=== PATIENT | female | born 1930 | race Caucasian/White ===

== ENCOUNTER 2017-08-06 13:21 | Inpatient (IN) | payer BC ==
[~2017-08-06] VITALS: Ht 162.6 cm; Wt 46.5 kg
--- NOTE | 2017-08-06 13:32 | ERA ---
ER Documentation Chief Complaint Date/Time DATE: 08/06/17 TIME: 13:32 Chief Complaint Bradycardia and Hypotensive HPI The patient is a 86-year-old female, presenting to the ER from rehab because of hypotension and bradycardia. She was treated with approximately 400 mL of normal saline by EMS and atropine 0.4 mg IV at the rehab with some response. She is awake, alert, able to answer simple questions but somnolent. Her history is limited, she denies headache, neck pain, chest pain, dyspnea, abdominal pain, vomiting. Past medical history: History of lung cancer, dementia, hypertension, dyslipidemia next Past surgical history: Status post lobectomy ROS All systems reviewed and are negative except as per history of present illness. Medications Home Meds Reported Medications Ascorbic Acid (Vitamin C) 500 Mg Tab, 500 MG PO TID, TAB 08/06/17 Acetaminophen* (Tylenol*) 325 Mg Tablet, 650 MG PO Q6H Y for MILD PAIN LEVEL 1-3 , TAB AND FOR FEVER 08/06/17 Tuberculin,Purif.prot.deriv. (Tubersol) 5 Tub Unit/0.1 Ml Vial, 5 TUB ID QHS, VIAL INJ. 0.1ML QHS FOR TB SCREENING FOR 1 DAY 2ND STEP START DATE 08/12/17-END DATE 08/13/17 08/06/17 Potassium Chloride (Klor-Con) 10 Meq Tablet.sa, 10 MEQ PO DAILY, TAB.SA 08/06/17 Pantoprazole* (Pantoprazole*) 40 Mg Tablet.dr, 40 MG PO AC BREAKFAST DINNER, TAB 08/06/17 Memantine* (Namenda*) 10 Mg Tablet, 10 MG PO BID, #60 TAB 08/06/17 Mirtazapine* (Mirtazapine*) 15 Mg Tablet, 15 MG PO HS, TAB 08/06/17 Metoprolol Tartrate* (Lopressor*) 25 Mg Tab, 25 MG PO DAILY, #60 TAB 08/06/17 Lovastatin* (Altoprev*) 40 Mg Tab.sr.24h, 40 MG PO HS, TAB 08/06/17 Ferrous Sulfate* (Ferrous Sulfate*) 325 Mg Tabec, 325 MG PO BID, TAB 08/06/17 Enalapril Maleate* (Enalapril Maleate*) 20 Mg Tablet, 20 MG PO DAILY, TAB 08/06/17 Cyanocobalamin* (Vitamin B-12*) 1,000 Mcg Tablet.sa, 1000 MCG PO DAILY, TAB 08/06/17 Allergies Allergies: Coded Allergies: No Known Allergy (Unverified , 08/06/17) Physical Exam Vitals Vital Signs Date Time Temp Pulse Resp B/P Pulse Ox O2 Delivery O2 Flow Rate FiO2 08/06/17 16:11 97.5 65 22 105/64 99 Room Air 08/06/17 14:12 97.5 65 18 91/65 96 Room Air 08/06/17 14:00 Nasal Cannula 2 08/06/17 13:44 97.5 66 18 55/41 97 Physical Exam Const: No acute distress.Dehydrated Head: Atraumatic. Eyes: Normal Conjunctiva. ENT: Normal External Ears, Nose and Mouth. Neck: Full range of motion. No meningismus. Resp: Clear to auscultation bilaterally. Cardio: Regular Bradycardic Abd: Soft, non distended, normal bowel sounds, non tender. Skin: No petechiae or rashes. Back: No midline or flank tenderness. Ext: No cyanosis, or edema. Neur: Limited due to her condition Psych: Unable to perform with a condition Result Diagram: 08/06/17 1420 08/06/17 1420 Results 24 hrs Laboratory Tests Test 08/06/17 14:20 08/06/17 14:41 08/06/17 14:49 White Blood Count 20.810^3/ul Red Blood Count 3.6610^6/ul Hemoglobin 9.4g/dl Hematocrit 31.2% Mean Corpuscular Volume 85.2fl Mean Corpuscular Hemoglobin 25.7pg Mean Corpuscular Hemoglobin Concent 30.1g/dl Red Cell Distribution Width 18.8% Platelet Count 18871^3/UL Mean Platelet Volume 11.0fl Neutrophils % 70.7% Lymphocytes % 16.8% Monocytes % 7.6% Eosinophils % 1.0% Basophils % 0.3% Nucleated Red Blood Cells % 0.0/100WBC Neutrophils # 14.710^3/ul Lymphocytes # 3.510^3/ul Monocytes # 1.610^3/ul Eosinophils # 0.210^3/ul Basophils # 0.110^3/ul Nucleated Red Blood Cells # 0.010^3/ul Prothrombin Time 14.3Sec Prothrombin Time Ratio 1.1 INR International Normalized Ratio 1.11 Activated Partial Thromboplast Time 30.3Sec Sodium Level 138mmol/L Potassium Level 4.3mmol/L Chloride Level 106mmol/L Carbon Dioxide Level 23mmol/L Anion Gap 13 Blood Urea Nitrogen 13mg/dl Creatinine 1.08mg/dl Glucose Level 178mg/dl Lactic Acid Level 2.3mmol/L Calcium Level 9.6mg/dl Total Bilirubin 0.1mg/dl Direct Bilirubin 0.00mg/dl Indirect Bilirubin 0.1mg/dl Aspartate Amino Transf (AST/SGOT) 23IU/L Alanine Aminotransferase (ALT/SGPT) 34IU/L Alkaline Phosphatase 134IU/L Troponin I 0.041ng/ml Total Protein 6.0g/dl Albumin 3.3g/dl Globulin 2.70g/dl Albumin/Globulin Ratio 1.22 Thyroid Stimulating Hormone (TSH) 3.390MIU/L Urine Color YELLOW Urine Clarity CLOUDY Urine pH 6.0 Urine Specific [place] 1.009 Urine Ketones NEGATIVEmg/dL Urine Nitrite NEGATIVEmg/dL Urine Bilirubin NEGATIVEmg/dL Urine Urobilinogen NEGATIVEmg/dL Urine Leukocyte Esterase 3+Maricarmen/ul Urine Microscopic RBC 3/HPF Urine Microscopic WBC 141/HPF Urine Bacteria FEW/HPF Urine Hemoglobin 1+mg/dL Urine Glucose NEGATIVEmg/dL Urine Total Protein 1+mg/dl Bedside Urine pH (LAB) 6.0 Bedside Urine Protein (LAB) 1+ Bedside Urine Glucose (UA) Negative Bedside Urine Ketones (LAB) Negative Bedside Urine Blood 1+ Bedside Urine Nitrite (LAB) Negative Bedside Urine Leukocyte Esterase (L 3+ Current Medications Medications (Trade) Dose Ordered Sig/Kristie Route PRN Reason Start Time Stop Time Status Last Admin Dose Admin Sodium Chloride 1,800 ml @ 1,800 mls/hr BOLUS X1 ONCE IV 08/06/17 14:00 08/06/17 14:59 DC 08/06/17 14:12 Piperacillin Sod/ Tazobactam Sod 100 ml @ 200 mls/hr ONCE ONCE IVPB 08/06/17 15:30 08/06/17 15:59 DC 08/06/17 15:44 Vancomycin HCl (Vancocin) 250 ml @ 125 mls/hr ONCE IVPB 08/06/17 16:30 08/06/17 18:29 08/06/17 16:46 Procedures/MDM [place] [address] Radiology Main Line: [phone] DIAGNOSTIC IMAGING REPORT Patient: DIA NICHOLS : 1930 Age: 86 Sex: F MR #: [id number] DOS: 08/06/17 1342 Ordering MD: LEVI SON MD Location: E/R Room/Bed: PROCEDURE: XR Chest. CLINICAL INDICATION: Sepsis. TECHNIQUE: Single frontal view. COMPARISON: None. FINDINGS: The lungs are clear. The heart is enlarged. There is no pleural effusion or pneumothorax. There are severe degenerative changes of both shoulders. IMPRESSION: 1. Cardiomegaly. 2. Severe degenerative changes of both shoulders. 3. Clear lungs. RPTAT: QQ .Kurt Ly MD, MD Date Time Electronically viewed and signed by .Kurt Ly MD, MD on 08/06/2017 14:08 .R/ CC: LEVI SON MD EKG: Read by emergency physician Rate/Rhythm: Normal Sinus Rhythm 64 beats/min QRS, ST, T-waves: No ST elevation, Anterior T abnormality Impression: Abnormal EKG MEDICAL MAKING DECISION: The patient is a 86-year-old female, presenting with acute severe sepsis, acute bradycardia, acute cystitis. She was treated with IV fluids, Zosyn IV, vancomycin IV with good response. The differential diagnoses considered include but are not limited to pneumonia, cystitis, pyelonephritis The differential diagnoses for acute bradycardia considered include but are not limited to electrolyte abnormality,acute coronary syndrome, acute myocardial infarction, pericarditis, pulmonary embolism, aortic dissection, pneumonia, pleural effusion, pneumothorax, GERD, chest wall pain. Admit MDM: Patient's infectious symptoms have not stabilized and the patient is at risk of rapid decompensation. The patient will be admitted for careful hydration, antibiotic therapy, and infectious source control. Severe Sepsis criteria: Infectious source: UTI End organ damage indicated by: Lactate > 2.0 mmol/L Hypotension (SBP < 90 or >40 mmHG drop or MAP < 65) Sepsis Management: Time of recognition of severe sepsis/septic shock:16:20 Within 3 hours of recognition: Blood cultures x 2 before broad-spectrum antibiotics: Yes 30 ml/kg NS bolus completed Initial lactate 2.3 Repeat lactate pending Critical Care: Critical care time 35 minutes excluding billable procedure Emergent fluid management while maintaining close respiratory support. Provision of immediate and broad-spectrum antibiotic therapy. Simultaneous assessment for possible sources in order to direct targeted therapy. Consideration for invasive and chemical support to prevent cardiopulmonary collapse. Septic Shock Assessment: Any lactic acid > 4.0 no Persistent hypotension (SBP < 90 or 40 mmHg drop, MAP < 65) despite 30 mL/kg IV fluid bolusno Departure Diagnosis: Primary Impression: Severe sepsis Additional Impressions: Bradycardia UTI (urinary tract infection) Anemia Condition: Critical Comments I discussed the findings with the patient. I discussed the patient with the on- call hospitalist Dr. Silverio at 4:20 PM who was made aware of the lab, the treatment, the patient condition. The patient is admitted to LEVI Faye MD Aug 06, 2017 13:32
[2017-08-06] MEDS ORDERED: SOD CHLORIDE 0.9% 1,800 ML IV ONE (14:00)
--- NOTE | 2017-08-06 14:08 | RADRPT ---
PROCEDURE: XR Chest. CLINICAL INDICATION: Sepsis. TECHNIQUE: Single frontal view. COMPARISON: None. FINDINGS: The lungs are clear. The heart is enlarged. There is no pleural effusion or pneumothorax. There are severe degenerative changes of both shoulders. IMPRESSION: 1. Cardiomegaly. 2. Severe degenerative changes of both shoulders. 3. Clear lungs. RPTAT: QQ .Kurt Ly MD, MD Date Time Electronically viewed and signed by .Kurt Ly MD, MD on 08/06/2017 14:08 .R/
[2017-08-06 14:42] LABS: URINE BLOOD (Dip) POC 1+ (NEGATIVE)
[2017-08-06 15:09] LABS: ABNORMAL IP MESSAGE 1; BASOPHIL # 0.1 10^3/ul (0.0-0.1); BASOPHILS % 0.3 % (0.0-2.0); EOSINOPHILS # 0.2 10^3/ul (0.0-0.5); HEMATOCRIT 31.2 % (37.0-47.0); HEMOGLOBIN 9.4 g/dl (12.0-16.0); LYMPHOCYTES # 3.5 10^3/ul (0.8-2.9); LYMPHOCYTES % 16.8 % (15.0-51.0); MEAN CORPUSCULAR HEMOGLOBIN 25.7 pg (29.0-33.0); MEAN CORPUSCULAR HGB CONC 30.1 g/dl (32.0-37.0); MEAN CORPUSCULAR VOLUME 85.2 fl (82.0-101.0); MONOCYTE # 1.6 10^3/ul (0.3-0.9); MONOCYTES % 7.6 % (0.0-11.0); NEUTROPHIL # 14.7 10^3/ul (1.6-7.5); NEUTROPHILS % 70.7 % (39.0-77.0); PLATELET COUNT 352 10^3/UL (140-415); RED BLOOD COUNT 3.66 10^6/ul (4.20-5.40); RED CELL DISTRIBUTION WIDTH 18.8 % (11.5-14.5); WHITE BLOOD COUNT 20.8 10^3/ul (4.8-10.8)
[2017-08-06 15:16] LABS: POSITIVE DIFF @See below
[2017-08-06 15:22] LABS: INR 1.11; PROTIME 14.3 Sec (12.2-14.2); PT RATIO 1.1
[2017-08-06 15:23] LABS: PARTIAL THROMBOPLASTIN TIME 30.3 Sec (25.0-35.0)
[2017-08-06 15:27] LABS: ALBUMIN 3.3 g/dl (3.3-4.9); ALBUMIN/GLOBULIN RATIO 1.22; BILIRUBIN,INDIRECT 0.1 mg/dl (0-1.1); BILIRUBIN,TOTAL 0.1 mg/dl (0.2-1.3); CALCIUM 9.6 mg/dl (8.4-10.2); CREATININE 1.08 mg/dl (0.44-1.00); POTASSIUM 4.3 mmol/L (3.5-5.1)
[2017-08-06] MEDS ORDERED: PIPER-TAZO 3.375 GM IV (PMX) 100 ML IVPB ONE (15:30)
[2017-08-06 15:35] LABS: TROPONIN-I 0.041 ng/ml (0.00-0.12)
[2017-08-06 15:39] LABS: ADD UMIC YES; UR ASCORBIC ACID NEGATIVE (NEGATIVE); UR BACTERIA FEW /HPF (NONE SEEN); UR BILIRUBIN (Dip) NEGATIVE (NEGATIVE); UR BLOOD (Dip) 1+ mg/dL (NEGATIVE); UR CLARITY CLOUDY (CLEAR); UR COLOR YELLOW (YELLOW); UR GLUCOSE (Dip) NEGATIVE (NEGATIVE); UR KETONES (Dip) NEGATIVE (NEGATIVE); UR LEUKOCYTE ESTERASE (Dip) 3+ Leu/ul (NEGATIVE); UR NITRITE (Dip) NEGATIVE (NEGATIVE); UR RBC 3 /HPF (0-5); UR SPECIFIC GRAVITY (Dip) 1.009 (1.003-1.030); UR TOTAL PROTEIN (Dip) 1+ mg/dl (NEGATIVE); UR UROBILINOGEN (Dip) NEGATIVE (NEGATIVE)
[2017-08-06 16:11] VITALS: TEMP 97.5
[2017-08-06] MEDS ORDERED: CYAN100080 PO (16:11)
[2017-08-06] MEDS ORDERED: FER325 PO (16:12)
[2017-08-06] MEDS ORDERED: ENAL20TA PO (16:12)
[2017-08-06] MEDS ORDERED: LOVA40TA64 PO (16:13)
[2017-08-06] MEDS ORDERED: METO-448 PO (16:13)
[2017-08-06] MEDS ORDERED: PANT40TA4 PO (16:14)
[2017-08-06] MEDS ORDERED: MEMA10TA16 PO (16:14)
[2017-08-06] MEDS ORDERED: MIRT15TA5 PO (16:14)
[2017-08-06] MEDS ORDERED: POTA10TA97 PO (16:15)
[2017-08-06] MEDS ORDERED: TUBE5VIA3 ID (16:18)
[2017-08-06] MEDS ORDERED: ACET325T33 PO (16:19)
[2017-08-06] MEDS ORDERED: ASC500 PO (16:20)
[2017-08-06] MEDS ORDERED: VANCOMYCIN 1 GM (PMX) 250 ML IVPB SCH (16:30)
[2017-08-06] MEDS ORDERED: LORAZEPAM 2 MG INJ IV PRN (18:00)
[2017-08-06] MEDS ORDERED: HYDROCODONE/APAP (5/325) TAB PO PRN (18:00)
[2017-08-06] MEDS ORDERED: NACL 0.9% 3 ML SYG IV SCH (18:00)
[2017-08-06] MEDS ORDERED: DOCUSATE SODIUM 100 MG CAP PO PRN (18:00)
[2017-08-06] MEDS ORDERED: PIPER-TAZO 3.375 GM IV (PMX) 100 ML IVPB SCH (18:00)
[2017-08-06] MEDS ORDERED: morphine 2 MG INJ IV PRN (18:00)
[2017-08-06] MEDS ORDERED: MAGNESIUM HYDROXIDE 30ML CUP PO PRN (18:00)
[2017-08-06] MEDS ORDERED: NITROGLYCERIN (SL) 0.4 MG TAB SL PRN (18:00)
[2017-08-06] MEDS ORDERED: ACETAMINOPHEN 325 MG TAB PO PRN (18:00)
[2017-08-06] MEDS ORDERED: hydrALAzine 20 MG INJ IV PRN (18:00)
[2017-08-06] MEDS ORDERED: NA PHOSPHATE/BIPHOS 133 ML ENEMA PR PRN (18:00)
[2017-08-06] MEDS ORDERED: ALBUTEROL/IPRATROPIUM (NEB) 3 ML AMP HHN PRN (18:00)
[2017-08-06] MEDS ORDERED: ONDANSETRON 4 MG INJ IV PRN (18:00)
--- NOTE | 2017-08-06 20:04 | HP ---
DATE OF ADMISSION: 08/06/2017 CHIEF COMPLAINT: Low heart rate and low blood pressure. HISTORY OF PRESENT ILLNESS: An 86-year-old female, with past medical history based on records, lung cancer, dementia, hypertension, high cholesterol, who was sent in from a nursing facility because of low blood pressure, bradycardia. Most of the information is taken from the ER documentation, as patient is unable to provide an HPI at this time. When she came in, her heart rate was in the low 50 range. She was given atropine, as well as normal saline and IV fluid bolus of around 400 mL. Her heart rate slightly improved. She did deny to the ER staff any abdominal pain. No vomiting. No chest pain. No neck pain or headache. That is the full extent of the review of systems. When she arrived, she was found with a lactic acid of 2.3, and her white count was 20.8, and she was also found with normal temperature, but signs of positive UTI, signs of sepsis. PAST SURGERY HISTORY: As above. ALLERGIES: NO KNOWN DRUG ALLERGIES. HOME MEDICATIONS: Based on records: 1. Ferrous sulfate 325 mg b.i.d. 2. Enalapril 20 mg daily. 3. Lovastatin 40 mg at bedtime. 4. Lopressor 25 mg daily. Tylenol 650 p.o. q.6h p.r.n. 5. Namenda 10 mg b.i.d. 6. Mirtazapine 50 mg at bedtime. 7. Klor-Con 10 mEq daily. Protonix 40 mg b.i.d. 8. Vitamin C 500 mg t.i.d. 9. Vitamin B12 1000 mcg daily. PAST SURGICAL HISTORY: Lobectomy in the past. FAMILY HISTORY: Unknown. SOCIAL HISTORY: Unknown. PHYSICAL EXAMINATION: VITAL SIGNS: Today vital signs, T-max 97.5, pulse 65, respirations 18 and 22, blood pressure 55-105 systolic over 41-64 diastolic, satting at 96-99 percent on room air. GENERAL: Patient lying in bed, no acute distress but not answering questions. HEENT: Pupils equal, round, react to light. Extraocular muscles intact. NECK: Supple. No thyromegaly. LUNGS: Clear to auscultation bilaterally. CARDIAC: S1, S2 heard. No rubs, gallops. ABDOMEN: Soft, nontender, nondistended. Normal bowel sounds. No rebound or guarding. MUSCULOSKELETAL: No lower extremity bilaterally. NEUROLOGIC: Unable to fully assess at this time. LABORATORY: WBC 20.8, hemoglobin 9.4, hematocrit 31.2, platelets 352. The lactic acid is 2.3. The comprehensive metabolic panel essentially normal, except creatinine was little high at 1.08. The UA again shows 3+ leukocyte esterase-positive, negative nitrites, few bacteria. Coags are normal. Patient had a chest x- ray that showed clear lungs, but there are severe degenerative changes of both shoulders. ASSESSMENT/PLAN: An 86-year-old female coming in with signs of low blood pressure, bradycardia and sepsis, secondary likely to urinary tract infections. 1. Sepsis, again likely secondary to gastrointestinal. Will follow up final culture results. Admit the patient and check TSH, A1c, lipid panel and put her on broad-spectrum antibiotics. Tylenol p.r.n. pain and fevers. Give her IV fluids. Also get Physical Therapy and Occupational Therapy consult as well. Consider Speech Therapy consult. Trend her lactic acid. Give her IV fluids. 2. Hypertension. We will hold her angiotensin-converting enzyme inhibitor, but she will be on hydralazine p.r.n. Monitor blood pressure for now. She actually came in hypotensive, so I would be careful with her blood pressure medicines, also holding her enalapril because of her hypotension as well. 3. History of dementia. Continue Namenda and Remeron. 4. High cholesterol. Continue lovastatin and check lipid panel. 5. Gastrointestinal prophylaxis. Proton pump inhibitor. 6. Deep venous thrombosis prophylaxis. Sequential compression devices. Dictated By: Lucian Silverio MD /razia/ella /Document#: [id number]
[2017-08-06] MEDS ORDERED: NON-FORMULARY/PATIENT OWN MED (Tuberculin,Purif.prot.deriv. (Tubersol) 5 TUB) ID SCH (21:00)
[2017-08-06 21:05] VITALS: Ht 162.6 cm; Wt 46.5 kg
[2017-08-06 21:21] VITALS: PULSE 73
[2017-08-06] MEDS: FERROUS SULFATE (EC) 325 MG TAB PO SCH (22:04)
[2017-08-06] MEDS: ASCORBIC ACID 500 MG TAB PO SCH (22:04)
[2017-08-06] MEDS: SOD CHLORIDE 0.45% 1,000 ML IV SCH (22:04)
[2017-08-06] MEDS: PIPER-TAZO 3.375 GM IV (PMX) 100 ML IVPB SCH (22:05)
[2017-08-06] MEDS: MEMANTINE 10 MG TAB PO SCH (22:57)
[2017-08-06] MEDS: MIRTAZAPINE 15 MG TAB PO SCH (22:57)
[2017-08-07] VITALS (10 sets, daily range): BP systolic 126–136; BP diastolic 60–78; PULSE 71–102; RESP 16–20
[2017-08-07] MEDS: PIPER-TAZO 3.375 GM IV (PMX) 100 ML IVPB SCH ×3 (05:58→21:29)
[2017-08-07] MEDS: SOD CHLORIDE 0.45% 1,000 ML IV SCH ×2 (07:01→12:51)
[2017-08-07 07:44] LABS: CHOL/HDL RATIO 2.6 RATIO
[2017-08-07 08:12] LABS: THYROID STIMULATING HORMONE 0.477 MIU/L (0.465-4.680)
[2017-08-07 08:12] LABS: ABNORMAL IP MESSAGE 1; BASOPHILS % 0.2 % (0.0-2.0); EOSINOPHILS % 0.2 % (0.0-7.0); HEMATOCRIT 29.3 % (37.0-47.0); HEMOGLOBIN 8.8 g/dl (12.0-16.0); LYMPHOCYTES # 2.1 10^3/ul (0.8-2.9); LYMPHOCYTES % 11.5 % (15.0-51.0); MEAN CORPUSCULAR HEMOGLOBIN 25.1 pg (29.0-33.0); MEAN CORPUSCULAR VOLUME 83.7 fl (82.0-101.0); MEAN PLATELET VOLUME 10.3 fl (7.4-10.4); MONOCYTE # 1.7 10^3/ul (0.3-0.9); MONOCYTES % 9.4 % (0.0-11.0); NEUTROPHILS % 77.7 % (39.0-77.0); PLATELET COUNT 289 10^3/UL (140-415); RED CELL DISTRIBUTION WIDTH 19.1 % (11.5-14.5)
[2017-08-07 08:14] LABS: POSITIVE DIFF @See below
[2017-08-07] MEDS ORDERED: ENALAPRIL 20 MG TAB PO SCH (09:00)
[2017-08-07 09:03] LABS: CALCIUM 8.5 mg/dl (8.4-10.2); CREATININE 0.78 mg/dl (0.44-1.00); MAGNESIUM 1.7 mg/dl (1.7-2.5); POTASSIUM 3.4 mmol/L (3.5-5.1)
[2017-08-07] MEDS: PANTOPRAZOLE (EC) 40 MG TAB PO SCH ×2 (11:07→18:59)
[2017-08-07] MEDS: FERROUS SULFATE (EC) 325 MG TAB PO SCH ×2 (11:08→20:18)
[2017-08-07] MEDS: ASCORBIC ACID 500 MG TAB PO SCH ×3 (11:08→20:18)
[2017-08-07] MEDS: CYANOCOBALAMIN 500 MCG TAB PO SCH (11:08)
[2017-08-07] MEDS: MEMANTINE 10 MG TAB PO SCH ×2 (11:09→20:18)
--- NOTE | 2017-08-07 11:58 | PN ---
Date/Time of Note Date/Time of Note DATE: 08/07/17 TIME: 11:54 Assessment/Plan VTE Prophylaxis VTE Prophylaxis Intervention: SCD's Lines/Catheters IV Catheter Type (from [facility]): Peripheral IV Urinary Cath still in place: Yes Reason Cath still needed: urinary retention Assessment/Plan Chief Complaint/Hosp Course ASSESSMENT/PLAN: 86-year-old female coming in with signs of low blood pressure, bradycardia and sepsis, secondary likely to urinary tract infection. 1. Sepsis, again likely secondary to UTI. Urine culture is positive for greater than 100,000 gram-negative rods. Lactic acid is normal now. - will follow up final culture results. -Continue broad-spectrum antibiotics. - Tylenol p.r.n. pain and fevers, IV fluids. Also get Physical Therapy and Occupational Therapy consult as well. Consider Speech Therapy consult. 2. Hypertension. Stable, continue hydralazine p.r.n. Monitor blood pressure for now. She actually came in hypotensive, so I would be careful with her blood pressure medicines, also holding her enalapril because of her hypotension as well as mild renal insufficiency, which has improved 3. History of dementia. Continue Namenda and Remeron. 4. High cholesterol. Continue lovastatin and check lipid panel. 5. Gastrointestinal prophylaxis. Proton pump inhibitor. 6. Deep venous thrombosis prophylaxis. Sequential compression devices. Problems: Subjective 24 Hr Interval Summary Free Text/Dictation Patient denies any fever or chest pain presently. Appears a bit more alert since yesterday, but still confused a bit. Exam/Review of Systems Vital Signs Vitals Vital Signs Date Time Temp Pulse Resp B/P Pulse Ox O2 Delivery O2 Flow Rate FiO2 08/07/17 11:44 98.6 80 18 131/68 100 08/06/17 20:50 Room Air 08/06/17 14:00 2 Intake and Output 08/06/17 08/06/17 08/07/17 15:00 23:00 07:00 Intake Total 2150 ml 825 ml Balance 2150 ml 825 ml Exam GENERAL: Patient lying in bed, no acute distress answering questions, AAO x 1 only (name) HEENT: Pupils equal, round, react to light. Extraocular muscles intact. NECK: Supple. No thyromegaly. LUNGS: Clear to auscultation bilaterally. CARDIAC: S1, S2 heard. No rubs, gallops. ABDOMEN: Soft, nontender, nondistended. Normal bowel sounds. No rebound or guarding. MUSCULOSKELETAL: No lower extremity bilaterally. NEUROLOGIC: Unable to fully assess at this time. Results Result Diagram: 08/07/17 0750 08/07/17 0750 Results 24 hrs Laboratory Tests Test 08/06/17 14:20 08/06/17 14:41 08/06/17 14:49 08/06/17 15:40 White Blood Count 20.8 H Red Blood Count 3.66 L Hemoglobin 9.4 L Hematocrit 31.2 L Mean Corpuscular Volume 85.2 Mean Corpuscular Hemoglobin 25.7 L Mean Corpuscular Hemoglobin Concent 30.1 L Red Cell Distribution Width 18.8 H Platelet Count 352 Mean Platelet Volume 11.0 H Neutrophils % 70.7 Lymphocytes % 16.8 Monocytes % 7.6 Eosinophils % 1.0 Basophils % 0.3 Nucleated Red Blood Cells % 0.0 Neutrophils # 14.7 H Lymphocytes # 3.5 H Monocytes # 1.6 H Eosinophils # 0.2 Basophils # 0.1 Nucleated Red Blood Cells # 0.0 Prothrombin Time 14.3 H Prothrombin Time Ratio 1.1 INR International Normalized Ratio 1.11 Activated Partial Thromboplast Time 30.3 Sodium Level 138 Potassium Level 4.3 Chloride Level 106 Carbon Dioxide Level 23 Anion Gap 13 Blood Urea Nitrogen 13 Creatinine 1.08 H Glucose Level 178 Lactic Acid Level 2.3 *H Calcium Level 9.6 Total Bilirubin 0.1 L Direct Bilirubin 0.00 Indirect Bilirubin 0.1 Aspartate Amino Transf (AST/SGOT) 23 Alanine Aminotransferase (ALT/SGPT) 34 Alkaline Phosphatase 134 H Troponin I 0.041 Total Protein 6.0 L Albumin 3.3 Globulin 2.70 Albumin/Globulin Ratio 1.22 Thyroid Stimulating Hormone (TSH) 3.390 Urine Color YELLOW Urine Clarity CLOUDY A Urine pH 6.0 Urine Specific [place] 1.009 Urine Ketones NEGATIVE Urine Nitrite NEGATIVE Urine Bilirubin NEGATIVE Urine Urobilinogen NEGATIVE Urine Leukocyte Esterase 3+ H Urine Microscopic RBC 3 Urine Microscopic WBC 141 H Urine Bacteria FEW A Urine Hemoglobin 1+ H Urine Glucose NEGATIVE Urine Total Protein 1+ H Bedside Urine pH (LAB) 6.0 Bedside Urine Protein (LAB) 1+ H Bedside Urine Glucose (UA) Negative Bedside Urine Ketones (LAB) Negative Bedside Urine Blood 1+ H Bedside Urine Nitrite (LAB) Negative Bedside Urine Leukocyte Esterase (L 3+ H Free Thyroxine 2.08 H Test 08/06/17 22:33 08/07/17 00:40 08/07/17 06:30 08/07/17 07:50 Lactic Acid Level 2.1 H 1.2 1.3 Hemoglobin A1c 5.6 Triglycerides Level 70 Cholesterol Level 86 L LDL Cholesterol, Calculated 40 HDL Cholesterol 32 L Cholesterol/HDL Ratio 2.6 Thyroid Stimulating Hormone (TSH) 0.477 White Blood Count 18.0 H Red Blood Count 3.50 L Hemoglobin 8.8 L Hematocrit 29.3 L Mean Corpuscular Volume 83.7 Mean Corpuscular Hemoglobin 25.1 L Mean Corpuscular Hemoglobin Concent 30.0 L Red Cell Distribution Width 19.1 H Platelet Count 289 Mean Platelet Volume 10.3 Neutrophils % 77.7 H Lymphocytes % 11.5 L Monocytes % 9.4 Eosinophils % 0.2 Basophils % 0.2 Nucleated Red Blood Cells % 0.0 Neutrophils # 14.0 H Lymphocytes # 2.1 Monocytes # 1.7 H Eosinophils # 0.0 Basophils # 0.0 Nucleated Red Blood Cells # 0.0 Sodium Level 138 Potassium Level 3.4 L Chloride Level 108 Carbon Dioxide Level 22 Anion Gap 11 Blood Urea Nitrogen 14 Creatinine 0.78 Glucose Level 120 # Calcium Level 8.5 Phosphorus Level 4.0 Magnesium Level 1.7 Medications Medications Current Medications Ondansetron HCl (Zofran Inj) 4 mg Q6H PRN IV NAUSEA AND/OR VOMITING; Start at 18:00 Acetaminophen (Tylenol Tab) 650 mg Q6H PRN PO PAIN LEVEL 1-3 OR FEVER; Start at 18:00 Acetaminophen/ Hydrocodone Bitart ([place] (5/325)) 1 tab Q6H PRN PO MODERATE PAIN LEVEL 4-6; Start 08/06/17 at 18:00 Morphine Sulfate (morphine) 2 mg Q4H PRN IV SEVERE PAIN LEVEL 7-10; Start 08/06 at 18:00 Docusate Sodium (Colace) 100 mg Q12H PRN PO CONSTIPATION; Start 08/06/17 at 18: 00 Magnesium Hydroxide (Milk Of Mag) 30 ml DAILY PRN PO CONSTIPATION; Start at 18:00 Sodium Biphosphate/ Sodium Phosphate 133 ml 133 ml DAILY PRN MI CONSTIPATION; Start 08/06/17 at 18:00 Sodium Chloride (1/2 NS) 1,000 ml @ 75 mls/hr [id number] IV Last administered on 08/06/17 22:04; Admin Dose 75 MLS/HR; Start 08/06/17 at 17:41 Lorazepam (Ativan) 0.5 mg Q6H PRN IV ANXIETY Last administered on 08/07/17 03: 29; Admin Dose 0.5 MG; Start 08/06/17 at 18:00 Hydralazine HCl (Apresoline) 10 mg Q6H PRN IV ELEVATED BLOOD PRESSURE; Start at 18:00 Nitroglycerin (Nitroglycerin (Sl Tab) 0.4 Mg) 1 tab Q5M PRN SL ANGINA; Start at 18:00 Ascorbic Acid (Vitamin C) 500 mg TID PO Last administered on 08/07/17 11:08; Admin Dose 500 MG; Start 08/06/17 at 21:00 Cyanocobalamin (Vitamin B12) 1,000 mcg DAILY PO Last administered on 08/07/17 11:08; Admin Dose 1,000 MCG; Start 08/07/17 at 09:00 Ferrous Sulfate (Ferrous Sulfate (Ec)) 325 mg BID PO Last administered on 11:08; Admin Dose 325 MG; Start 08/06/17 at 21:00 Memantine (Namenda) 10 mg BID PO Last administered on 08/07/17 11:09; Admin Dose 10 MG; Start 08/06/17 at 21:00 Mirtazapine (Remeron) 15 mg HS PO Last administered on 08/06/17 22:57; Admin Dose 15 MG; Start 08/06/17 at 21:00 Atorvastatin Calcium 10 mg 10 mg DAILY@21 PO ; Start 08/07/17 at 21:00 Piperacillin Sod/ Tazobactam Sod (Zosyn 3.375gm/ 100 ml (Pmx)) 100 ml @ 200 mls /hr Q8 IVPB Last administered on 08/07/17 05:58; Admin Dose 200 MLS/HR; Start 08/06/17 at 22:00 Influenza Virus Vaccine 0.5 ml 0.5 ml ONCE ONCE IM* ; Start 08/07/17 at 12:00; Stop 08/07/17 at 12:01 Potassium Chloride/Sodium Chloride (KCl/NS) 165 ml @ 55 mls/hr ONCE ONCE IVPB ; Start 08/07/17 at 12:00; Stop 08/07/17 at 14:59; Status MELI TAYLOR Aug 07, 2017 11:58
[2017-08-07] MEDS ORDERED: INFLUENZA VIRUS VACCINE 0.5 ML SYG IM* ONE (12:00)
[2017-08-07] MEDS ORDERED: POTASSIUM CHLORIDE 30 MEQ in SOD CHLORIDE 0.9% 150 ML IVPB ONE (13:30)
[2017-08-07] MEDS: ATORVASTATIN 10 MG TAB PO SCH (20:18)
[2017-08-07] MEDS: MIRTAZAPINE 15 MG TAB PO SCH (20:18)
[2017-08-08] VITALS (12 sets, daily range): BP systolic 114–131; BP diastolic 57–72; PULSE 69–86; RESP 16–20
[2017-08-08] MEDS: PIPER-TAZO 3.375 GM IV (PMX) 100 ML IVPB SCH (05:18)
[2017-08-08] MEDS: SOD CHLORIDE 0.45% 1,000 ML IV SCH ×3 (05:24→23:01)
[2017-08-08] MEDS: PANTOPRAZOLE (EC) 40 MG TAB PO SCH ×2 (06:34→17:28)
[2017-08-08 08:42] LABS: BASOPHILS % 0.2 % (0.0-2.0); EOSINOPHILS # 0.1 10^3/ul (0.0-0.5); EOSINOPHILS % 0.8 % (0.0-7.0); HEMOGLOBIN 7.8 g/dl (12.0-16.0); LYMPHOCYTES # 1.9 10^3/ul (0.8-2.9); LYMPHOCYTES % 11.3 % (15.0-51.0); MEAN CORPUSCULAR HEMOGLOBIN 25.8 pg (29.0-33.0); MEAN CORPUSCULAR HGB CONC 31.2 g/dl (32.0-37.0); MEAN CORPUSCULAR VOLUME 82.8 fl (82.0-101.0); MEAN PLATELET VOLUME 10.2 fl (7.4-10.4); MONOCYTE # 1.2 10^3/ul (0.3-0.9); NEUTROPHIL # 13.6 10^3/ul (1.6-7.5); NEUTROPHILS % 79.6 % (39.0-77.0); PLATELET COUNT 276 10^3/UL (140-415); RED BLOOD COUNT 3.02 10^6/ul (4.20-5.40); RED CELL DISTRIBUTION WIDTH 19.3 % (11.5-14.5); WHITE BLOOD COUNT 17.1 10^3/ul (4.8-10.8)
[2017-08-08 08:53] LABS: CALCIUM 8.4 mg/dl (8.4-10.2); CREATININE 0.68 mg/dl (0.44-1.00); POTASSIUM 3.3 mmol/L (3.5-5.1)
[2017-08-08] MEDS: MEMANTINE 10 MG TAB PO SCH ×2 (09:23→20:50)
[2017-08-08] MEDS: FERROUS SULFATE (EC) 325 MG TAB PO SCH ×2 (09:23→20:49)
[2017-08-08] MEDS: ASCORBIC ACID 500 MG TAB PO SCH ×3 (09:24→20:50)
[2017-08-08] MEDS: CYANOCOBALAMIN 500 MCG TAB PO SCH (09:24)
[2017-08-08] MEDS ORDERED: POTASSIUM CHLORIDE (SR) 20 MEQ TAB PO STA (09:44)
[2017-08-08 11:14] LABS: HEMATOCRIT 26.3 % (37.0-47.0); HEMOGLOBIN 8.1 g/dl (12.0-16.0)
--- NOTE | 2017-08-08 12:13 | PN ---
Date/Time of Note Date/Time of Note DATE: 08/08/17 TIME: 12:04 Assessment/Plan VTE Prophylaxis VTE Prophylaxis Intervention: SCD's Lines/Catheters IV C[facility]ter Type (from [facility]): Peripheral IV Urinary Cath still in place: Yes Reason Cath still needed: urinary retention Assessment/Plan Chief Complaint/Hosp Course ASSESSMENT/PLAN: 86-year-old female coming in with signs of low blood pressure, bradycardia and sepsis, secondary likely to urinary tract infection. 1. Sepsis, again likely secondary to UTI. Urine culture is positive for greater than 100,000 E. coli per. Lactic acid is normal now. - will follow up final culture results. -Continue broad-spectrum antibiotics, will switch to ciprofloxacin today - Tylenol p.r.n. pain and fevers, IV fluids, follow-up physical Therapy and Occupational Therapy consult as well, Consider Speech Therapy consult. 2. Hypertension. Stable, continue hydralazine p.r.n. Monitor blood pressure for now. She actually came in hypotensive, so I would be careful with her blood pressure medicines, also holding her enalapril because of her hypotension as well as mild renal insufficiency, which has improved 3. History of dementia. Continue Namenda and Remeron. 4. High cholesterol. Continue lovastatin and check lipid panel. 5. Gastrointestinal prophylaxis. Proton pump inhibitor. 6. Deep venous thrombosis prophylaxis. Sequential compression devices. 7. anemia -hemoglobin 2 days ago was 9.4, today is 8.1. No signs of any upper or lower GI bleeding. - Will order for occult stool test Problems: Subjective 24 Hr Interval Summary Free Text/Dictation Denies any abdominal pain or upper or lower GI bleeding. Family slightly lower hemoglobin levels today however. Otherwise no acute events overnight. Seen by speech and OT teams yesterday. Exam/Review of Systems Vital Signs Vitals Vital Signs Date Time Temp Pulse Resp B/P Pulse Ox O2 Delivery O2 Flow Rate FiO2 08/08/17 11:35 98.4 83 18 122/57 98 08/06/17 20:50 Room Air 08/06/17 14:00 2 Intake and Output 08/07/17 08/07/17 08/08/17 15:00 23:00 07:00 Intake Total 50 ml 950 ml 950 ml Balance 50 ml 950 ml 950 ml Exam GENERAL: Patient lying in bed, no acute distress answering questions, AAO x 1 only (name) HEENT: Pupils equal, round, react to light. Extraocular muscles intact. NECK: Supple. No thyromegaly. LUNGS: Clear to auscultation bilaterally. CARDIAC: S1, S2 heard. No rubs, gallops. ABDOMEN: Soft, nontender, nondistended. Normal bowel sounds. No rebound or guarding. MUSCULOSKELETAL: No lower extremity bilaterally. NEUROLOGIC: No focal deficits Results Result Diagram: 08/08/17 1027 08/08/17 0809 Results 24 hrs Laboratory Tests Test 08/07/17 12:43 08/07/17 18:07 08/08/17 08:09 08/08/17 10:27 Lactic Acid Level 1.0 1.0 White Blood Count 17.1 H Red Blood Count 3.02 L Hemoglobin 7.8 L 8.1 L Hematocrit 25.0 L 26.3 L Mean Corpuscular Volume 82.8 Mean Corpuscular Hemoglobin 25.8 L Mean Corpuscular Hemoglobin Concent 31.2 L Red Cell Distribution Width 19.3 H Platelet Count 276 Mean Platelet Volume 10.2 Neutrophils % 79.6 H Lymphocytes % 11.3 L Monocytes % 7.0 Eosinophils % 0.8 Basophils % 0.2 Nucleated Red Blood Cells % 0.0 Neutrophils # 13.6 H Lymphocytes # 1.9 Monocytes # 1.2 H Eosinophils # 0.1 Basophils # 0.0 Nucleated Red Blood Cells # 0.0 Sodium Level 135 Potassium Level 3.3 L Chloride Level 109 Carbon Dioxide Level 23 Anion Gap 6 L Blood Urea Nitrogen 7 Creatinine 0.68 Glucose Level 84 Calcium Level 8.4 Medications Medications Current Medications Ondansetron HCl (Zofran Inj) 4 mg Q6H PRN IV NAUSEA AND/OR VOMITING; Start at 18:00 Acetaminophen (Tylenol Tab) 650 mg Q6H PRN PO PAIN LEVEL 1-3 OR FEVER; Start at 18:00 Acetaminophen/ Hydrocodone Bitart (Adrian (5/325)) 1 tab Q6H PRN PO MODERATE PAIN LEVEL 4-6; Start 08/06/17 at 18:00 Morphine Sulfate (morphine) 2 mg Q4H PRN IV SEVERE PAIN LEVEL 7-10; Start 08/06 at 18:00 Docusate Sodium (Colace) 100 mg Q12H PRN PO CONSTIPATION; Start 08/06/17 at 18: 00 Magnesium Hydroxide (Milk Of Mag) 30 ml DAILY PRN PO CONSTIPATION; Start at 18:00 Sodium Biphosphate/ Sodium Phosphate 133 ml 133 ml DAILY PRN MT CONSTIPATION; Start 08/06/17 at 18:00 Sodium Chloride (1/2 NS) 1,000 ml @ 75 mls/hr [id number] IV Last administered on 08/08/17 05:24; Admin Dose 75 MLS/HR; Start 08/06/17 at 17:41 Lorazepam (Ativan) 0.5 mg Q6H PRN IV ANXIETY Last administered on 08/07/17 03: 29; Admin Dose 0.5 MG; Start 08/06/17 at 18:00 Hydralazine HCl (Apresoline) 10 mg Q6H PRN IV ELEVATED BLOOD PRESSURE; Start at 18:00 Nitroglycerin (Nitroglycerin (Sl Tab) 0.4 Mg) 1 tab Q5M PRN SL ANGINA; Start at 18:00 Ascorbic Acid (Vitamin C) 500 mg TID PO Last administered on 08/08/17 09:24; Admin Dose 500 MG; Start 08/06/17 at 21:00 Cyanocobalamin (Vitamin B12) 1,000 mcg DAILY PO Last administered on 08/08/17 09:24; Admin Dose 1,000 MCG; Start 08/07/17 at 09:00 Ferrous Sulfate (Ferrous Sulfate (Ec)) 325 mg BID PO Last administered on 09:23; Admin Dose 325 MG; Start 08/06/17 at 21:00 Memantine (Namenda) 10 mg BID PO Last administered on 08/08/17 09:23; Admin Dose 10 MG; Start 08/06/17 at 21:00 Mirtazapine (Remeron) 15 mg HS PO Last administered on 08/07/17 20:18; Admin Dose 15 MG; Start 08/06/17 at 21:00 Atorvastatin Calcium 10 mg 10 mg DAILY@21 PO Last administered on 08/07/17 20: 18; Admin Dose 10 MG; Start 08/07/17 at 21:00 Piperacillin Sod/ Tazobactam Sod (Zosyn 3.375gm/ 100 ml (Pmx)) 100 ml @ 200 mls /hr Q8 IVPB Last administered on 08/08/17t 05:18; Admin Dose 200 MLS/HR; Start 08/06/17 at 22:00 MELI ROSALES Aug 08, 2017 12:13
[2017-08-08] MEDS: ATORVASTATIN 10 MG TAB PO SCH (20:49)
[2017-08-08] MEDS: CIPROFLOXACIN 400MG/D5W 200 ML IVPB SCH (20:49)
[2017-08-08] MEDS: MIRTAZAPINE 15 MG TAB PO SCH (20:50)
[2017-08-09] VITALS (11 sets, daily range): BP systolic 129–168; BP diastolic 61–86; PULSE 69–95; RESP 16–18
[2017-08-09] MEDS: PANTOPRAZOLE (EC) 40 MG TAB PO SCH ×2 (08:54→17:58)
[2017-08-09] MEDS: FERROUS SULFATE (EC) 325 MG TAB PO SCH (08:54)
[2017-08-09] MEDS: MEMANTINE 10 MG TAB PO SCH (08:54)
[2017-08-09] MEDS: ASCORBIC ACID 500 MG TAB PO SCH ×2 (08:54→13:20)
[2017-08-09] MEDS: CYANOCOBALAMIN 500 MCG TAB PO SCH (08:54)
[2017-08-09] MEDS: CIPROFLOXACIN 400MG/D5W 200 ML IVPB SCH (08:55)
[2017-08-09 09:22] LABS: BASOPHILS % 0.2 % (0.0-2.0); EOSINOPHILS # 0.2 10^3/ul (0.0-0.5); EOSINOPHILS % 1.7 % (0.0-7.0); HEMATOCRIT 26.5 % (37.0-47.0); HEMOGLOBIN 8.2 g/dl (12.0-16.0); LYMPHOCYTES # 2.3 10^3/ul (0.8-2.9); LYMPHOCYTES % 17.9 % (15.0-51.0); MEAN CORPUSCULAR HEMOGLOBIN 25.9 pg (29.0-33.0); MEAN CORPUSCULAR HGB CONC 30.9 g/dl (32.0-37.0); MEAN CORPUSCULAR VOLUME 83.9 fl (82.0-101.0); MEAN PLATELET VOLUME 10.2 fl (7.4-10.4); MONOCYTE # 0.9 10^3/ul (0.3-0.9); MONOCYTES % 7.2 % (0.0-11.0); NEUTROPHILS % 71.6 % (39.0-77.0); PLATELET COUNT 290 10^3/UL (140-415); RED BLOOD COUNT 3.16 10^6/ul (4.20-5.40); RED CELL DISTRIBUTION WIDTH 19.2 % (11.5-14.5); WHITE BLOOD COUNT 12.6 10^3/ul (4.8-10.8)
[2017-08-09 09:45] LABS: CALCIUM 8.3 mg/dl (8.4-10.2); CREATININE 0.62 mg/dl (0.44-1.00); POTASSIUM 3.5 mmol/L (3.5-5.1)
[2017-08-09] MEDS: SOD CHLORIDE 0.45% 1,000 ML IV SCH (12:47)
--- NOTE | 2017-08-09 15:34 | PDOCDIS ---
Discharge Instructions CONDITION Patient Condition: Stable HOME CARE INSTRUCTIONS: Special Diet: MELI Baez Aug 09, 2017 15:34
--- NOTE | 2017-08-09 16:30 | DS ---
DATE OF ADMISSION: 08/06/2017 DATE OF DISCHARGE: 08/09/2017 HISTORY OF PRESENT ILLNESS: This is an 86-year-old female originally admitted on August 06, 2017, being discharged to group home facility on August 09, 2017. HOSPITAL COURSE: The patient came in with bradycardia and hypotension. She was found also with leukocytosis and so sepsis secondary likely to a UTI. Her urine culture did grow greater 100,000 colony-forming units of E coli. She was placed on antibiotics and IV fluids. Her blood pressure improved. Her heart rate improved as well. Her leukocytosis came down to around the 12 range. She had no fevers at all, and again we mentioned her urine culture results. She was seen by occupational therapy and speech therapy as well, and because she is clinically improved today, she will be discharged back to group home facility today in improved condition. DISCHARGE MEDICATIONS: She will go back with antibiotics, ciprofloxacin IV 400 mg q.12h. for another 7 days. Please see printed medical reconciliation sheet for full list of discharge medications. FINAL DIAGNOSES: 1. Severe sepsis secondary to urinary tract infection (UTI), now improved. 2. History of essential hypertension. 3. History of dementia. 4. High cholesterol. 5. Urinary tract infection (UTI). 6. History of prior anemia. TIME SPENT: Time spent to discharge the patient, 45 minutes. Dictated By: Lucian Silverio MD /razia/laure /Document#: [id number]
== END 2017-08-09 21:04 | DRG 872 ==
LOC: E/R 13:21 → MS4 16:24
PROVIDERS: ADMIT Family Medicine; ATTEND Family Medicine
DX: A41.51 Sepsis due to Escherichia coli [E. coli] (principal); F03.90 Unspecified dementia, unspecified severity, without behavioral disturbance, psychotic disturbance, mood disturbance, and anxiety; N39.0 Urinary tract infection, site not specified; R65.20 Severe sepsis without septic shock; I10 Essential (primary) hypertension; E78.00 Pure hypercholesterolemia, unspecified; D64.9 Anemia, unspecified
CPT/HCPCS: 36415; 71010; 80048; 80053; 80061; 81001; 81003; 82270; 83036; 83605; 83735; 84100; 84439; 84443; 84484; 85014; 85018; 85025; 85610; 85730; 87040; 87045; 87081; 87086; 90686; 92526; 92610; 93005; 96361; 96365; 96366; 96375; 97003; 97110; 97161; 97166; 97530; 97535; J0360; J0744; J2060; J2543; J3370; J7030; P9612